=== PATIENT | female | born 1980 | race Caucasian/White ===

== ENCOUNTER 2016-09-15 15:44 | Outpatient (CLI) | payer BC ==
[~2016-09-15] VITALS: Ht 165.1 cm; Wt 98.0 kg
[2016-09-15 16:24] LABS: ASPARTATE AMINO TRANSFERASE 12 U/L (15-37); BLOOD UREA NITROGEN 11 mg/dL (7-18)
== END 2016-09-15 17:10 | disposition home or self-care (01) ==
LOC: LDOP 15:44
PROVIDERS: ATTEND Obstetrics & Gynecology
DX: O09.523 Supervision of elderly multigravida, third trimester (principal); O11.3 Pre-existing hypertension with pre-eclampsia, third trimester; O99.213 Obesity complicating pregnancy, third trimester; Z3A.35 35 weeks gestation of pregnancy
CPT/HCPCS: 36415; 59025; 80053; 81001; 84550; 85025; 87086; 99201; G0463

== ENCOUNTER 2016-09-25 08:27 | Inpatient (IN) | payer BC ==
[~2016-09-25] VITALS: Ht 167.6 cm; Wt 97.7 kg
[2016-09-26] MEDS: D5%-LACTATED RINGERS 1,000 ML IV SCH ×2 (08:28→16:28)
[2016-09-26] MEDS ORDERED: OXYTOCIN 30U/ 0.9% NaCL 500ML 500 ML IV ONE (08:28)
[2016-09-26] MEDS ORDERED: OXYTOCIN 30U/ 0.9% NaCL 500ML 500 ML IV PRN (08:28)
[2016-09-26] MEDS ORDERED: ONDANSETRON 2MG/ML, 2ML IVPush PRN (08:30)
[2016-09-26] MEDS ORDERED: FENTANYL PF 100 MCG/2ML IV PRN (08:30)
[2016-09-26] MEDS ORDERED: MISOPROSTOL 25 MCG TABLET VG PRN (08:30)
[2016-09-26] MEDS: LACTATED RINGERS 1,000 ML IV SCH ×2 (08:52→15:47)
[2016-09-26] MEDS: PLEASE ENTER HEIGHT AND WEIGHT MC SCH ×2 (09:00→17:00)
[2016-09-26] MEDS ORDERED: LIDOCAINE 1%, 20ML ONE (09:02)
[2016-09-26] MEDS ORDERED: MISOPROSTOL 200 MCG TABLET ONE (09:02)
[2016-09-26] MEDS ORDERED: OXYTOCIN 30U/ 0.9% NaCL 500ML 500 ML ONE (09:03)
[2016-09-26] MEDS ORDERED: MISOPROSTOL 25 MCG TABLET ONE ×2 (09:03→12:51)
[2016-09-26] MEDS ORDERED: NEWBORN KIT ONE (09:03)
[2016-09-26 09:06] LABS: ASPARTATE AMINO TRANSFERASE 14 U/L (15-37); BLOOD UREA NITROGEN 17 mg/dL (7-18)
[2016-09-26] MEDS ORDERED: PENICILLIN GK 5,000,000 UNITS in DEXTROSE 5% 100 ML IVPB ONE (09:30)
[2016-09-26] MEDS ORDERED: PNV11TAB PO (11:58)
[2016-09-26] MEDS: PENICILLIN GK 2,500,000 UNITS in DEXTROSE 5% 100 ML IVPB SCH ×3 (16:55→20:56)
[2016-09-26] MEDS ORDERED: CALCIUM CARBONATE 500 MG TAB.CHEW ONE (19:55)
[2016-09-26] MEDS ORDERED: CALCIUM CARBONATE 500 MG TAB.CHEW PO PRN (20:30)
[2016-09-26] MEDS ORDERED: FENTANYL PF 100 MCG/2ML ONE (22:29)
[2016-09-26] MEDS: FENTANYL PF 100 MCG/2ML IVPush PRN (22:31)
[2016-09-27] MEDS: D5%-LACTATED RINGERS 1,000 ML IV SCH ×3 (00:28→16:28)
[2016-09-27] MEDS: PENICILLIN GK 2,500,000 UNITS in DEXTROSE 5% 100 ML IVPB SCH ×6 (00:50→22:00)
[2016-09-27] MEDS: LACTATED RINGERS 1,000 ML IV SCH ×5 (00:51→20:43)
[2016-09-27] MEDS ORDERED: FENTANYL PF 100 MCG/2ML ONE (03:58)
[2016-09-27] MEDS: FENTANYL PF 100 MCG/2ML IVPush PRN (04:00)
[2016-09-27] MEDS ORDERED: ONDANSETRON 2MG/ML, 2ML ONE (16:08)
[2016-09-27] MEDS ORDERED: FENTANYL/BUPIV./NS/PF 250 ML EPIDCONT ONE (16:16)
[2016-09-27] MEDS ORDERED: TERBUTALINE 1 MG/ML, 1ML ONE (19:53)
[2016-09-27] MEDS ORDERED: METOCLOPRAMIDE 5 MG/ML, 2ML ONE (20:06)
[2016-09-27] MEDS ORDERED: SODIUM CITRATE/CITRIC ACID 30 ML UDC ONE (20:06)
[2016-09-27] MEDS ORDERED: LIDOCAINE/MPF 2%-EPI 1:200K, 20 ML ONE (20:07)
[2016-09-27] MEDS: OXYTOCIN 30U/ 0.9% NaCL 500ML 500 ML IV SCH (20:43)
[2016-09-27] MEDS ORDERED: FENTANYL/BUPIV./NS/PF 250 ML EPIDCONT SCH (20:50)
[2016-09-27] MEDS ORDERED: LACTATED RINGERS 1,000 ML IV SCH (20:50)
[2016-09-27] MEDS ORDERED: morphine SULFATE 10 MG/ML, 1ML IVPush PRN (21:00)
[2016-09-27] MEDS ORDERED: morphine SULFATE 10 MG/ML, 1ML IV PRN (21:00)
[2016-09-27] MEDS ORDERED: MEPERIDINE/PF 25MG/0.5ML IVPush PRN (21:00)
[2016-09-27] MEDS ORDERED: MISOPROSTOL 200 MCG TABLET PR PRN (21:00)
[2016-09-27] MEDS ORDERED: hydrALAzine 20 MG/ML, 1ML IV PRN (21:00)
[2016-09-27] MEDS ORDERED: FENTANYL PF 100 MCG/2ML IV PRN (21:00)
[2016-09-27] MEDS ORDERED: ACETAMINOPHEN 325 MG TABLET PO PRN (21:00)
[2016-09-27] MEDS ORDERED: LABETALOL 5MG/ML, 20ML IV PRN (21:00)
[2016-09-27] MEDS ORDERED: ONDANSETRON 2MG/ML, 2ML IVPush PRN (21:00)
[2016-09-27] MEDS ORDERED: LACTATED RINGERS 1,000 ML IVBOLUS PRN (21:00)
[2016-09-27 22:20] VITALS: BP 121/69
[2016-09-27 23:00] VITALS: BP 134/86
[2016-09-27] MEDS: OXYcodone 5 MG/5 ML ORAL.SOL UDC PO PRN (23:44)
[2016-09-28] MEDS: OXYcodone 5 MG/5 ML ORAL.SOL UDC PO PRN (01:13)
[2016-09-28] MEDS: PENICILLIN GK 2,500,000 UNITS in DEXTROSE 5% 100 ML IVPB SCH (02:00)
[2016-09-28 02:44] VITALS: BP 132/80
[2016-09-28] MEDS: LACTATED RINGERS 1,000 ML IV SCH ×5 (04:43→20:43)
[2016-09-28] MEDS: OXYcodone/APAP 5/325MG TABLET PO PRN ×5 (05:02→22:48)
[2016-09-28] MEDS: OXYTOCIN 30U/ 0.9% NaCL 500ML 500 ML IV SCH ×2 (06:43→16:30)
[2016-09-28] MEDS ORDERED: PRENATAL VIT/IRON/FA 1 EACH TABLET ONE (07:42)
[2016-09-28] MEDS: DOCUSATE 100 MG CAPSULE PO PRN ×2 (07:46→22:48)
[2016-09-28 08:05] VITALS: BP 148/84
[2016-09-28] MEDS ORDERED: PRENATAL VIT/IRON/FA 1 EACH TABLET PO SCH (09:00)
[2016-09-28] MEDS: IBUPROFEN 600 MG TABLET PO PRN ×2 (09:54→17:28)
[2016-09-28 12:48] VITALS: BP 131/74
[2016-09-28 16:30] VITALS: BP 144/88
[2016-09-28] MEDS ORDERED: MISOPROSTOL 200 MCG TABLET PR PRN (16:30)
[2016-09-28] MEDS ORDERED: ACETAMINOPHEN 325 MG TABLET PO PRN (16:30)
[2016-09-28] MEDS ORDERED: CALCIUM CARBONATE 500 MG TAB.CHEW PO PRN (16:30)
[2016-09-28 19:40] VITALS: BP 136/83
[2016-09-29] MEDS: OXYTOCIN 30U/ 0.9% NaCL 500ML 500 ML IV SCH ×2 (02:30→12:30)
[2016-09-29] MEDS: LACTATED RINGERS 1,000 ML IV SCH ×4 (02:43→12:43)
[2016-09-29] MEDS: OXYcodone/APAP 5/325MG TABLET PO PRN ×5 (02:44→20:42)
[2016-09-29 02:45] VITALS: BP 136/87
[2016-09-29 07:22] VITALS: BP 140/88
[2016-09-29] MEDS: PRENATAL VIT/IRON/FA 1 EACH TABLET PO SCH (09:54)
[2016-09-29] MEDS: DOCUSATE 100 MG CAPSULE PO PRN ×2 (09:54→20:41)
[2016-09-29 19:20] VITALS: BP 113/77
[2016-09-29 19:45] VITALS: BP 149/96
[2016-09-30] MEDS: OXYcodone/APAP 5/325MG TABLET PO PRN ×3 (00:47→10:39)
[2016-09-30 00:48] VITALS: BP 134/84
[2016-09-30 07:06] VITALS: BP 144/87
[2016-09-30] MEDS: DOCUSATE 100 MG CAPSULE PO PRN (08:25)
[2016-09-30] MEDS: PRENATAL VIT/IRON/FA 1 EACH TABLET PO SCH (08:25)
[2016-09-30] MEDS ORDERED: OXYC-302 PO (09:40)
[2016-09-30] MEDS ORDERED: IBUP800T PO (09:40)
== END 2016-09-30 13:40 | disposition home or self-care (01) | DRG 766 ==
LOC: LDIP 09-26 08:12 → 2NW 09-27 22:46
PROVIDERS: ADMIT Obstetrics & Gynecology; ATTEND Obstetrics & Gynecology
PROC: 10D00Z1 Extraction of Products of Conception, Low, Open Approach (ICD-10-PCS; principal; 2016-09-27)
DX: O14.04 Mild to moderate pre-eclampsia, complicating childbirth (principal); Z37.0 Single live birth; Z3A.37 37 weeks gestation of pregnancy; O76 Abnormality in fetal heart rate and rhythm complicating labor and delivery; O69.81X0 Labor and delivery complicated by cord around neck, without compression, not applicable or unspecified; O99.03 Anemia complicating the puerperium; D64.9 Anemia, unspecified
CPT/HCPCS: 36415; 80053; 82248; 82803; 84550; 85025; 86850; 86900; J2405; J2540; J3010; J3490; J2270; J2590; J7120; J7121

== ENCOUNTER 2016-09-30 17:30 | Emergency (ER) | payer BC ==
[~2016-09-30] VITALS: Ht 165.1 cm; Wt 93.3 kg
[~2016-09-30 17:30] MED LIST: IBUP800T PO; OXYC-302 PO; PNV11TAB PO
[2016-09-30 18:58] VITALS: BP 150/75
== END 2016-09-30 19:00 | disposition home or self-care (01) ==
LOC: ED 18:54
DX: O90.0 Disruption of cesarean delivery wound (principal)
CPT/HCPCS: 99283

== ENCOUNTER 2020-06-09 08:51 | Inpatient (IN) | payer BC ==
[~2020-06-09] VITALS: Ht 167.6 cm; Wt 91.0 kg
[~2020-06-09 08:51] MED LIST changes: +IBUP-1223 PO; -IBUP800T PO; -OXYC-302 PO; +OXYC1TAB14 PO
[2020-06-18] MEDS ORDERED: METOCLOPRAMIDE 5 MG/ML, 2ML IV ONE (06:00)
[2020-06-18] MEDS ORDERED: LACTATED RINGERS 1,000 ML IVBOLUS ONE (06:00)
[2020-06-18] MEDS ORDERED: ONDANSETRON 2MG/ML, 2ML IVPush ONE (06:00)
[2020-06-18] MEDS ORDERED: CALCIUM CARBONATE 500 MG TAB.CHEW PO PRN ×2 (06:00→08:00)
[2020-06-18] MEDS ORDERED: CEFAZOLIN PMX 1GM/50ML 50 ML IVPB ONE (06:00)
[2020-06-18] MEDS ORDERED: SODIUM CITRATE/CITRIC ACID 30 ML UDC PO ONE (06:00)
[2020-06-18 06:08] VITALS: BP 159/76
[2020-06-18] MEDS ORDERED: PLEASE ENTER HEIGHT AND WEIGHT MC SCH (06:30)
[2020-06-18 06:32] LABS: BASOPHILS % (AUTO) 1 % (0-1); EOSINOPHILS % (AUTO) 3 % (1-7); LYMPHOCYTES % (AUTO) 25 % (22-44); MEAN CORPUSCULAR HEMOGLOBIN 30.7 pg (27.0-34.8); MEAN CORPUSCULAR HGB CONC 34.4 g/dL (32.4-35.8); MEAN PLATELET VOLUME 8.5 fL (7.4-10.4); MONOCYTES % (AUTO) 10 % (2-9); NEUTROPHILS % (AUTO) 63 % (42-75); PLATELET COUNT 270 x10^3/uL (130-400); RED BLOOD COUNT 3.97 x10^6/uL (3.82-5.3); RED CELL DISTRIBUTION WIDTH 13.6 % (9.6-15.2)
[2020-06-18 06:33] LABS: MD NO
[2020-06-18] MEDS ORDERED: SODIUM CITRATE/CITRIC ACID 15 ML UDC ONE (06:38)
[2020-06-18 06:39] LABS: ALBUMIN 2.3 g/dL (3.4-5.0); ANION GAP 10 mmol/L (5-15); CALCIUM 9.8 mg/dL (8.5-10.1); CHLORIDE 109 mmol/L (98-107)
[2020-06-18 06:44] LABS: ALANINE AMINOTRANSFERASE 19 U/L (12-78); ALKALINE PHOSPHATASE 95 U/L (45-117); BILIRUBIN, DIRECT < 0.1 mg/dL (0.1-0.2); BILIRUBIN,TOTAL 0.3 mg/dL (0.2-1.0); CREATININE 0.62 mg/dL (0.55-1.02); TOTAL PROTEIN 6.5 g/dL (6.4-8.2)
[2020-06-18] MEDS ORDERED: DIPHENHYDRAMINE 50 MG/ML, 1ML IV PRN (07:00)
[2020-06-18] MEDS ORDERED: NO SEDATIVES, TRANQUILIZERS OR ANTIEMETICS XX SCH (07:00)
[2020-06-18] MEDS ORDERED: EPHEDRINE 50 MG/ML, 1ML IVPush PRN (07:00)
[2020-06-18] MEDS ORDERED: ONDANSETRON 2MG/ML, 2ML IVPush PRN (07:00)
[2020-06-18] MEDS ORDERED: NALOXONE 0.4 MG/ML, 1ML IV PRN (07:00)
[2020-06-18] MEDS ORDERED: morphine SULFATE/PF 0.5 MG/ML, 10ML ONE (07:21)
[2020-06-18] MEDS ORDERED: DEXAMETHASONE 4 MG/ML, 1ML ONE (07:23)
[2020-06-18] MEDS ORDERED: KETOROLAC 30 MG/1 ML ONE (07:23)
[2020-06-18] MEDS ORDERED: CEFAZOLIN 1,000 MG ONE (07:23)
[2020-06-18] MEDS ORDERED: ONDANSETRON 2MG/ML, 2ML ONE (07:23)
[2020-06-18] MEDS ORDERED: SODIUM CHLORIDE 0.9% PF 10ML ONE (07:23)
[2020-06-18] MEDS ORDERED: OXYTOCIN 10 UNITS/ML, 1ML ONE (07:23)
[2020-06-18] MEDS ORDERED: PHENYLEPHRINE 10 MG/ML ONE (07:23)
[2020-06-18 07:40] LABS: CREATININE,URINE RANDOM 50.5 mg/dL
[2020-06-18] MEDS ORDERED: SIMETHICONE 80 MG CHEW TAB PO PRN (08:00)
[2020-06-18] MEDS ORDERED: OXYcodone/APAP 5/325MG TABLET PO PRN ×2 (08:00)
[2020-06-18] MEDS ORDERED: CARBOPROST TROMETHAMINE 250 MCG/ML, 1ML IM PRN (08:00)
[2020-06-18] MEDS ORDERED: ONDANSETRON 2MG/ML, 2ML IV PRN ×2 (08:00→09:00)
[2020-06-18] MEDS: KETOROLAC 30 MG/1 ML IV SCH ×3 (08:00→19:56)
[2020-06-18] MEDS ORDERED: GLYCERIN ADULT SUPP PR PRN (08:00)
[2020-06-18] MEDS ORDERED: DIPH,PERTUSS(ACELL),TET VAC/PF NC IM-VACC PRN (08:00)
[2020-06-18] MEDS ORDERED: METOCLOPRAMIDE 5 MG/ML, 2ML IV PRN ×2 (08:00→09:00)
[2020-06-18] MEDS ORDERED: BISACODYL 10 MG SUPP PR PRN (08:00)
[2020-06-18] MEDS ORDERED: ACETAMINOPHEN 325 MG TABLET PO PRN (08:00)
[2020-06-18] MEDS ORDERED: MISOPROSTOL 200 MCG TABLET PR PRN (08:00)
[2020-06-18] MEDS ORDERED: METHYLERGONOVINE 0.2 MG/ML IM PRN (08:00)
[2020-06-18] MEDS: LACTATED RINGERS 1,000 ML IV SCH ×4 (08:00→18:05)
[2020-06-18] MEDS ORDERED: MEPERIDINE/PF 50 MG/ML IM PRN (08:00)
[2020-06-18] MEDS: OXYTOCIN 30U/ 0.9% NaCL 500ML 500 ML IV SCH ×2 (08:37→18:05)
[2020-06-18] MEDS: PRENATAL VIT/IRON/FA 1 EACH TABLET PO SCH (08:46)
[2020-06-18] MEDS ORDERED: MEPERIDINE/PF 25MG/0.5ML IV PRN (09:00)
[2020-06-18] MEDS ORDERED: MORPHINE SULFATE 4 MG/ML, 1ML IV PRN (09:00)
[2020-06-18] MEDS ORDERED: PROMETHAZINE 25 MG/ML, 1ML IV PRN (09:00)
[2020-06-18] MEDS ORDERED: OXYcodone 5 MG/5 ML ORAL.SOL UDC PO PRN (09:00)
[2020-06-18] MEDS ORDERED: FENTANYL PF 100 MCG/2ML IVPush PRN (09:00)
[2020-06-18 10:44] VITALS: BP 111/71
[2020-06-18] MEDS: KETOROLAC 30 MG/1 ML IVPush SCH ×2 (13:47→20:00)
[2020-06-18 15:11] VITALS: BP 111/62
[2020-06-18 16:30] LABS: BASOPHILS % (AUTO) 0 % (0-1); EOSINOPHILS % (AUTO) 0 % (1-7); LYMPHOCYTES % (AUTO) 10 % (22-44); MEAN CORPUSCULAR HEMOGLOBIN 30.5 pg (27.0-34.8); MEAN CORPUSCULAR HGB CONC 33.9 g/dL (32.4-35.8); MEAN PLATELET VOLUME 8.6 fL (7.4-10.4); MONOCYTES % (AUTO) 6 % (2-9); NEUTROPHILS % (AUTO) 84 % (42-75); PLATELET COUNT 266 x10^3/uL (130-400); RED CELL DISTRIBUTION WIDTH 13.7 % (9.6-15.2)
[2020-06-18 16:31] LABS: MD NO
[2020-06-18 20:00] VITALS: BP 109/66
[2020-06-19] VITALS: BP 97/59
[2020-06-19] MEDS: KETOROLAC 30 MG/1 ML IVPush SCH ×3 (02:00→14:00)
[2020-06-19] MEDS: KETOROLAC 30 MG/1 ML IV SCH ×4 (02:28→19:56)
[2020-06-19] MEDS: LACTATED RINGERS 1,000 ML IV SCH ×5 (04:00→16:00)
[2020-06-19] MEDS: OXYTOCIN 30U/ 0.9% NaCL 500ML 500 ML IV SCH ×2 (04:00→14:00)
[2020-06-19 04:15] VITALS: BP 105/68
[2020-06-19] MEDS: PRENATAL VIT/IRON/FA 1 EACH TABLET PO SCH (07:57)
[2020-06-19 08:00] VITALS: BP 103/67
[2020-06-19] MEDS: OXYcodone/APAP 5/325MG TABLET PO PRN ×3 (11:48→20:23)
[2020-06-19 20:00] VITALS: BP 110/73
[2020-06-19] MEDS: DOCUSATE 100 MG CAPSULE PO PRN (20:22)
[2020-06-20] MEDS: OXYcodone/APAP 5/325MG TABLET PO PRN ×3 (01:33→12:29)
[2020-06-20] MEDS: KETOROLAC 30 MG/1 ML IV SCH (02:05)
[2020-06-20 07:00] VITALS: BP 131/84
[2020-06-20] MEDS: DOCUSATE 100 MG CAPSULE PO PRN (07:13)
[2020-06-20] MEDS: IBUPROFEN 600 MG TABLET PO PRN ×2 (07:13→12:29)
[2020-06-20] MEDS: PRENATAL VIT/IRON/FA 1 EACH TABLET PO SCH (07:13)
[2020-06-20] MEDS: LACTATED RINGERS 1,000 ML IV SCH ×4 (08:00→10:00)
[2020-06-20] MEDS: OXYTOCIN 30U/ 0.9% NaCL 500ML 500 ML IV SCH ×2 (10:00)
[2020-06-20] MEDS ORDERED: IBUP-1222 PO (10:52)
[2020-06-20] MEDS ORDERED: OXYC1TAB14 PO (10:53)
[2020-06-20] MEDS ORDERED: DOCU-131 PO (10:53)
== END 2020-06-20 12:35 | disposition home or self-care (01) | DRG 785 ==
LOC: LDIP 06-18 05:38 → 2NW 06-18 10:34
PROVIDERS: ADMIT Obstetrics & Gynecology; ATTEND Obstetrics & Gynecology
PROC: 10D00Z1 Extraction of Products of Conception, Low, Open Approach (ICD-10-PCS; principal; 2020-06-18)
PROC: 0UB70ZZ Excision of Bilateral Fallopian Tubes, Open Approach (ICD-10-PCS; 2020-06-18)
DX: O24.424 Gestational diabetes mellitus in childbirth, insulin controlled (principal); O34.211 Maternal care for low transverse scar from previous cesarean delivery; E78.00 Pure hypercholesterolemia, unspecified; O69.81X0 Labor and delivery complicated by cord around neck, without compression, not applicable or unspecified; O99.284 Endocrine, nutritional and metabolic diseases complicating childbirth; Z37.0 Single live birth; Z3A.38 38 weeks gestation of pregnancy; Z30.2 Encounter for sterilization
CPT/HCPCS: 36415; 80053; 82248; 82570; 82962; 84156; 84550; 85025; 86592; 86850; 86900; 88302; G0378; J0690; J1100; J1885; J2274; J2405; J2370; J2590; J2765; J7120

== ENCOUNTER 2020-06-15 11:39 | Outpatient (CLI) | payer BC ==
[2020-06-15 12:22] LABS: BASOPHILS % (AUTO) 0 % (0-1); EOSINOPHILS % (AUTO) 2 % (1-7); LYMPHOCYTES % (AUTO) 21 % (22-44); MEAN CORPUSCULAR HEMOGLOBIN 30.3 pg (27.0-34.8); MEAN CORPUSCULAR HGB CONC 33.7 g/dL (32.4-35.8); MEAN PLATELET VOLUME 8.4 fL (7.4-10.4); MONOCYTES % (AUTO) 8 % (2-9); NEUTROPHILS % (AUTO) 69 % (42-75); PLATELET COUNT 293 x10^3/uL (130-400); RED BLOOD COUNT 4.04 x10^6/uL (3.82-5.3); RED CELL DISTRIBUTION WIDTH 13.8 % (9.6-15.2)
[2020-06-15 12:25] LABS: MD NO
[2020-06-15 12:33] LABS: MICROSCOPIC NOT IND
[2020-06-15 12:34] LABS: ALANINE AMINOTRANSFERASE 19 U/L (12-78); ALBUMIN 2.1 g/dL (3.4-5.0); ANION GAP 7 mmol/L (5-15); CALCIUM 8.9 mg/dL (8.5-10.1); CHLORIDE 107 mmol/L (98-107)
[2020-06-15 12:35] LABS: BILIRUBIN, DIRECT < 0.1 mg/dL (0.1-0.2)
[2020-06-15 12:37] LABS: ALKALINE PHOSPHATASE 95 U/L (45-117); BILIRUBIN,TOTAL 0.2 mg/dL (0.2-1.0); CREATININE 0.57 mg/dL (0.55-1.02); TOTAL PROTEIN 6.6 g/dL (6.4-8.2)
[2020-06-15 12:45] LABS: CREATININE,URINE RANDOM < 13.00 mg/dL; TOTAL PROTEIN,URINE RANDOM < 5 mg/dL (0-12)
== END 2020-06-15 13:40 | disposition home or self-care (01) ==
LOC: LDOP 11:39
PROVIDERS: ATTEND Obstetrics & Gynecology
DX: O98.512 Other viral diseases complicating pregnancy, second trimester (principal); O09.92 Supervision of high risk pregnancy, unspecified, second trimester; O13.2 Gestational [pregnancy-induced] hypertension without significant proteinuria, second trimester; Z3A.20 20 weeks gestation of pregnancy
CPT/HCPCS: 36415; 59025; 80053; 81003; 82248; 82570; 84156; 84550; 85025; U0003